=== PATIENT | male | born 1965 | race Caucasian/White ===

== ENCOUNTER 2023-07-21 11:48 | Inpatient (IN) | payer OTHER ==
[2023-07-21 12:39] VITALS: BMI 21.9
[2023-07-21] MEDS ORDERED: BENZONATATE 200 MG CAPSULE PO PRN (13:36)
[2023-07-21] MEDS ORDERED: NALOXONE HCL 0.4 MG/ML VIAL IM PRN (13:36)
[2023-07-21] MEDS ORDERED: BENZOCAINE/MENTHOL (CHLORASEPTIC ) LOZENGE MM PRN (13:36)
[2023-07-21] MEDS ORDERED: COLLOIDAL OATMEAL 1 BAR EACH TP PRN (13:36)
[2023-07-21] MEDS ORDERED: guaiFENesin 600 MG TABLET.ER (FP) PO PRN (13:36)
[2023-07-21] MEDS ORDERED: POLYETHYLENE GLYCOL (HEALTHYLAX) 3350 17 GM PACKET PO PRN (13:36)
[2023-07-21] MEDS ORDERED: LOPERAMIDE HCL 2 MG CAPSULE PO PRN (13:36)
[2023-07-21] MEDS ORDERED: MAGNESIUM HYDROX 2400MG/30ML ORAL SUSPENSION 30 ML CUP PO PRN (13:36)
[2023-07-21] MEDS ORDERED: NALOXONE HCL (KLOXXADO) 8 MG SPRAY NS PRN (13:36)
[2023-07-21] MEDS ORDERED: ACETAMINOPHEN 325 MG TABLET (FP) PO PRN (13:36)
[2023-07-21] MEDS: MAG HYDROX/AL HYDROX/SIMETH 30 ML UNIT-DOSE CUP PO PRN (15:37)
[2023-07-21] MEDS: PRENATAL VITAMINS W/ FOLIC ACID TABLET (FP) PO SCH (15:37)
[2023-07-21] MEDS ORDERED: PRENATAL VITAMINS W/ FOLIC ACID TABLET (FP) PO ONE (15:38)
[2023-07-21] MEDS ORDERED: MAG HYDROX/AL HYDROX/SIMETH 30 ML UNIT-DOSE CUP ONE (15:38)
[2023-07-21] MEDS ORDERED: cloNIDine HCL 0.1 MG TABLET PO ONE ×2 (17:52→18:15)
[2023-07-21] MEDS ORDERED: hydrOXYzine PAMOATE 25 MG CAPSULE (FP) PO ONE (17:57)
[2023-07-21] MEDS ORDERED: PATIENT'S OWN MEDICATION (NON-FORMULARY) (Ibuprofen [Ibuprofen] 800 MG Tablet) PO PRN (18:23)
[2023-07-21] MEDS: THIAMINE HCL 100 MG TABLET (FP) PO SCH (21:10)
[2023-07-21] MEDS: traZODone HCL 50 MG TABLET (FP) PO SCH (21:11)
[2023-07-21] MEDS: METHOCARBAMOL 500 MG TABLET PO SCH (21:11)
[2023-07-21] MEDS: AMOXICILLIN 500 MG CAPSULE (FP) PO SCH (21:11)
[2023-07-21] MEDS: clonazePAM 0.5 MG ODT TABLETS SL SCH (21:13)
[2023-07-21] MEDS: SUCRALFATE 1 GM TABLET (FP) PO SCH (21:31)
[2023-07-21] MEDS: hydrALAZINE HCL 25 MG TABLET (FP) PO SCH (21:31)
[2023-07-21] MEDS ORDERED: hydrALAZINE HCL 50 MG TABLET (FP) PO SCH (22:00)
[2023-07-21] MEDS ORDERED: MELATONIN 5 MG TABLETS PO SCH (22:00)
[2023-07-22] MEDS: hydrALAZINE HCL 25 MG TABLET (FP) PO SCH ×3 (06:26→21:52)
[2023-07-22] MEDS: AMOXICILLIN 500 MG CAPSULE (FP) PO SCH ×3 (06:26→21:15)
[2023-07-22] MEDS ORDERED: PATIENT'S OWN MEDICATION (NON-FORMULARY) (Valsartan/Hydrochlorothiazide [Valsartan-Hctz 80 PO SCH (10:00)
[2023-07-22] MEDS ORDERED: FUROSEMIDE 20 MG TABLET (FP) PO SCH (10:00)
[2023-07-22] MEDS: LOSARTAN POTASSIUM 50 MG TABLET PO SCH (10:33)
[2023-07-22] MEDS: LORATADINE 10 MG TABLET PO SCH (10:33)
[2023-07-22] MEDS: PRENATAL VITAMINS W/ FOLIC ACID TABLET (FP) PO SCH (10:33)
[2023-07-22] MEDS: IBUPROFEN 600 MG TABLET (FP) PO PRN ×2 (10:33→17:47)
[2023-07-22] MEDS: SERTRALINE HCL 50 MG TABLET (FP) PO SCH (10:34)
[2023-07-22] MEDS: cloNIDine HCL 0.1 MG TABLET PO SCH (10:34)
[2023-07-22] MEDS: ASPIRIN COATED 81 MG TABLET.EC PO SCH (10:34)
[2023-07-22] MEDS: METHOCARBAMOL 500 MG TABLET PO SCH ×2 (10:34→21:16)
[2023-07-22] MEDS: HYDROCHLOROTHIAZIDE 12.5 MG CAPSULE (FP) PO SCH (10:34)
[2023-07-22] MEDS: SUCRALFATE 1 GM TABLET (FP) PO SCH ×4 (10:36→21:19)
[2023-07-22] MEDS: FOLIC ACID 1 MG TABLET (FP) PO SCH (10:36)
[2023-07-22] MEDS: clonazePAM 0.5 MG ODT TABLETS SL SCH ×2 (10:36→21:15)
[2023-07-22] MEDS: FUROSEMIDE 40 MG TABLET (FP) PO SCH (10:36)
[2023-07-22] MEDS: VALSARTAN 80 MG TABLET PO SCH (10:36)
[2023-07-22 12:22] LABS: HEMOGLOBIN 13.2 GM/dL (11.7-16.9); MCH 33.4 pg (25.7-33.7); MCHC 35.7 g/dl (32.0-35.9); MEAN CELL VOLUME 93.6 fl (80-96); MEAN PLT VOLUME 7.6 fl (7.5-11.1); PLATELET COUNT 273 10^3/uL (134-434); RBC 3.96 M/mm3 (4.00-5.60); RDW 15.3 % (11.9-15.9)
[2023-07-22 12:26] LABS: POTASSIUM 3.6 mmol/L (3.5-5.1)
[2023-07-22 12:30] LABS: ALBUMIN 3.7 g/dl (3.4-5.0); BLOOD UREA NITROGEN 9.4 mg/dL (7-18); CALCIUM 8.2 mg/dL (8.5-10.1)
[2023-07-22 12:33] LABS: CREATININE 0.8 mg/dL (0.55-1.3)
[2023-07-22 12:35] LABS: BILIRUBIN,TOTAL 0.9 mg/dL (0.2-1); TOT PROT 6.8 g/dl (6.4-8.2)
[2023-07-22 12:47] LABS: SYPHILIS W/ RPR CONF NON-REACTIVE (NONREACTIVE)
[2023-07-22] MEDS: MAG HYDROX/AL HYDROX/SIMETH 30 ML UNIT-DOSE CUP PO PRN (15:47)
[2023-07-22] MEDS: THIAMINE HCL 100 MG TABLET (FP) PO SCH (21:15)
[2023-07-22] MEDS: traZODone HCL 50 MG TABLET (FP) PO SCH (21:16)
[2023-07-23] MEDS: hydrALAZINE HCL 25 MG TABLET (FP) PO SCH ×3 (06:18→21:24)
[2023-07-23] MEDS: AMOXICILLIN 500 MG CAPSULE (FP) PO SCH ×3 (06:18→21:24)
[2023-07-23] MEDS: IBUPROFEN 600 MG TABLET (FP) PO PRN ×2 (06:20→17:11)
[2023-07-23] MEDS: PRENATAL VITAMINS W/ FOLIC ACID TABLET (FP) PO SCH (09:04)
[2023-07-23] MEDS: clonazePAM 0.5 MG ODT TABLETS SL SCH ×2 (09:05→21:24)
[2023-07-23] MEDS: HYDROCHLOROTHIAZIDE 12.5 MG CAPSULE (FP) PO SCH (09:05)
[2023-07-23] MEDS: SUCRALFATE 1 GM TABLET (FP) PO SCH ×4 (09:05→23:40)
[2023-07-23] MEDS: SERTRALINE HCL 50 MG TABLET (FP) PO SCH (09:06)
[2023-07-23] MEDS: cloNIDine HCL 0.1 MG TABLET PO SCH (09:06)
[2023-07-23] MEDS: ASPIRIN COATED 81 MG TABLET.EC PO SCH (09:06)
[2023-07-23] MEDS: LOSARTAN POTASSIUM 50 MG TABLET PO SCH (09:06)
[2023-07-23] MEDS: FOLIC ACID 1 MG TABLET (FP) PO SCH (09:07)
[2023-07-23] MEDS: VALSARTAN 80 MG TABLET PO SCH (09:07)
[2023-07-23] MEDS: LORATADINE 10 MG TABLET PO SCH (09:07)
[2023-07-23] MEDS: METHOCARBAMOL 500 MG TABLET PO SCH ×2 (09:08→21:23)
[2023-07-23] MEDS: FUROSEMIDE 40 MG TABLET (FP) PO SCH (09:08)
[2023-07-23 10:18] LABS: PH,URINE 8.5 (5.0-8.0); URINE APPEARANCE CLEAR; URINE BILIRUBIN NEGATIVE (NEGATIVE); URINE COLOR YELLOW; URINE GLUCOSE (UA) NEGATIVE (NEGATIVE); URINE KETONE NEGATIVE (NEGATIVE); URINE LEUK ESTERASE NEGATIVE (NEGATIVE); URINE NITRITE NEGATIVE (NEGATIVE); URINE PROTEIN NEGATIVE (NEGATIVE)
[2023-07-23] MEDS: MAG HYDROX/AL HYDROX/SIMETH 30 ML UNIT-DOSE CUP PO PRN (13:19)
[2023-07-23] MEDS: traZODone HCL 50 MG TABLET (FP) PO SCH (21:23)
[2023-07-23] MEDS: THIAMINE HCL 100 MG TABLET (FP) PO SCH (21:25)
[2023-07-24] MEDS: hydrALAZINE HCL 25 MG TABLET (FP) PO SCH (06:41)
[2023-07-24] MEDS: AMOXICILLIN 500 MG CAPSULE (FP) PO SCH ×3 (06:42→21:15)
[2023-07-24] MEDS: hydrOXYzine PAMOATE 25 MG CAPSULE (FP) PO PRN (06:42)
[2023-07-24] MEDS: VALSARTAN 80 MG TABLET PO SCH (10:46)
[2023-07-24] MEDS: SUCRALFATE 1 GM TABLET (FP) PO SCH ×4 (10:47→21:16)
[2023-07-24] MEDS: clonazePAM 0.5 MG ODT TABLETS SL SCH ×2 (10:47→21:16)
[2023-07-24] MEDS: HYDROCHLOROTHIAZIDE 12.5 MG CAPSULE (FP) PO SCH (10:48)
[2023-07-24] MEDS: cloNIDine HCL 0.1 MG TABLET PO SCH (10:48)
[2023-07-24] MEDS: LOSARTAN POTASSIUM 50 MG TABLET PO SCH (10:49)
[2023-07-24] MEDS: LORATADINE 10 MG TABLET PO SCH (10:49)
[2023-07-24] MEDS: FOLIC ACID 1 MG TABLET (FP) PO SCH (10:49)
[2023-07-24] MEDS: ASPIRIN COATED 81 MG TABLET.EC PO SCH (10:49)
[2023-07-24] MEDS: METHOCARBAMOL 500 MG TABLET PO SCH ×2 (10:50→21:16)
[2023-07-24] MEDS: FUROSEMIDE 40 MG TABLET (FP) PO SCH (10:51)
[2023-07-24] MEDS: SERTRALINE HCL 50 MG TABLET (FP) PO SCH (10:51)
[2023-07-24] MEDS: PRENATAL VITAMINS W/ FOLIC ACID TABLET (FP) PO SCH (10:51)
[2023-07-24] MEDS: hydrALAZINE HCL 50 MG TABLET (FP) PO SCH ×2 (15:20→21:15)
[2023-07-24] MEDS: THIAMINE HCL 100 MG TABLET (FP) PO SCH (21:13)
[2023-07-24] MEDS: traZODone HCL 50 MG TABLET (FP) PO SCH (21:16)
[2023-07-24] MEDS: MAG HYDROX/AL HYDROX/SIMETH 30 ML UNIT-DOSE CUP PO PRN (21:17)
[2023-07-25] MEDS: hydrALAZINE HCL 50 MG TABLET (FP) PO SCH ×3 (06:34→21:15)
[2023-07-25] MEDS: hydrOXYzine PAMOATE 25 MG CAPSULE (FP) PO PRN (06:35)
[2023-07-25] MEDS: AMOXICILLIN 500 MG CAPSULE (FP) PO SCH ×3 (06:43→21:15)
[2023-07-25] MEDS: PRENATAL VITAMINS W/ FOLIC ACID TABLET (FP) PO SCH (10:38)
[2023-07-25] MEDS: METHOCARBAMOL 500 MG TABLET PO SCH ×2 (10:39→21:15)
[2023-07-25] MEDS: LOSARTAN POTASSIUM 50 MG TABLET PO SCH (10:39)
[2023-07-25] MEDS: SUCRALFATE 1 GM TABLET (FP) PO SCH ×4 (10:39→21:16)
[2023-07-25] MEDS: FUROSEMIDE 40 MG TABLET (FP) PO SCH (10:40)
[2023-07-25] MEDS: HYDROCHLOROTHIAZIDE 12.5 MG CAPSULE (FP) PO SCH (10:40)
[2023-07-25] MEDS: VALSARTAN 80 MG TABLET PO SCH (10:40)
[2023-07-25] MEDS: clonazePAM 0.5 MG ODT TABLETS SL SCH ×2 (10:41→21:16)
[2023-07-25] MEDS: ASPIRIN COATED 81 MG TABLET.EC PO SCH (10:41)
[2023-07-25] MEDS: SERTRALINE HCL 50 MG TABLET (FP) PO SCH (10:42)
[2023-07-25] MEDS: LORATADINE 10 MG TABLET PO SCH (10:42)
[2023-07-25] MEDS: cloNIDine HCL 0.1 MG TABLET PO SCH (10:42)
[2023-07-25] MEDS: FOLIC ACID 1 MG TABLET (FP) PO SCH (10:42)
[2023-07-25] MEDS: IBUPROFEN 600 MG TABLET (FP) PO PRN ×2 (10:43→21:16)
[2023-07-25] MEDS ORDERED: cloNIDine HCL 0.1 MG TABLET PO SCH (14:30)
[2023-07-25] MEDS: MAG HYDROX/AL HYDROX/SIMETH 30 ML UNIT-DOSE CUP PO PRN (14:42)
[2023-07-25] MEDS ORDERED: cloNIDine HCL 0.1 MG TABLET PO PRN (14:45)
[2023-07-25] MEDS: PANTOPRAZOLE 20 MG TABLET PO SCH (15:15)
[2023-07-25] MEDS: THIAMINE HCL 100 MG TABLET (FP) PO SCH (21:15)
[2023-07-25] MEDS: traZODone HCL 50 MG TABLET (FP) PO SCH (21:15)
[2023-07-26] MEDS: hydrALAZINE HCL 50 MG TABLET (FP) PO SCH ×3 (06:43→21:12)
[2023-07-26] MEDS: IBUPROFEN 600 MG TABLET (FP) PO PRN ×2 (06:44→13:50)
[2023-07-26] MEDS: AMOXICILLIN 500 MG CAPSULE (FP) PO SCH ×3 (07:01→21:12)
[2023-07-26] MEDS: clonazePAM 0.5 MG ODT TABLETS SL SCH ×2 (10:08→21:13)
[2023-07-26] MEDS: PRENATAL VITAMINS W/ FOLIC ACID TABLET (FP) PO SCH (10:08)
[2023-07-26] MEDS: SERTRALINE HCL 50 MG TABLET (FP) PO SCH (10:08)
[2023-07-26] MEDS: HYDROCHLOROTHIAZIDE 12.5 MG CAPSULE (FP) PO SCH (10:08)
[2023-07-26] MEDS: ASPIRIN COATED 81 MG TABLET.EC PO SCH (10:08)
[2023-07-26] MEDS: FOLIC ACID 1 MG TABLET (FP) PO SCH (10:08)
[2023-07-26] MEDS: LOSARTAN POTASSIUM 50 MG TABLET PO SCH (10:08)
[2023-07-26] MEDS: FUROSEMIDE 40 MG TABLET (FP) PO SCH (10:09)
[2023-07-26] MEDS: PANTOPRAZOLE 20 MG TABLET PO SCH (10:09)
[2023-07-26] MEDS: VALSARTAN 80 MG TABLET PO SCH (10:09)
[2023-07-26] MEDS: SUCRALFATE 1 GM TABLET (FP) PO SCH ×4 (10:09→21:12)
[2023-07-26] MEDS: LORATADINE 10 MG TABLET PO SCH (10:09)
[2023-07-26] MEDS: METHOCARBAMOL 500 MG TABLET PO SCH ×2 (10:10→21:12)
[2023-07-26] MEDS ORDERED: hydrOXYzine PAMOATE 25 MG CAPSULE (FP) PO PRN (17:00)
[2023-07-26] MEDS: traZODone HCL 50 MG TABLET (FP) PO SCH (21:12)
[2023-07-26] MEDS: THIAMINE HCL 100 MG TABLET (FP) PO SCH (21:12)
[2023-07-26] MEDS: IBUPROFEN 400 MG TABLET (FP) PO PRN (21:12)
[2023-07-26] MEDS: MAG HYDROX/AL HYDROX/SIMETH 30 ML UNIT-DOSE CUP PO PRN (21:14)
[2023-07-27] MEDS: hydrALAZINE HCL 50 MG TABLET (FP) PO SCH ×3 (06:27→21:12)
[2023-07-27] MEDS: AMOXICILLIN 500 MG CAPSULE (FP) PO SCH ×3 (06:27→21:12)
[2023-07-27] MEDS: IBUPROFEN 600 MG TABLET (FP) PO PRN ×4 (06:28→18:59)
[2023-07-27] MEDS: METHOCARBAMOL 500 MG TABLET PO SCH ×2 (10:20→21:12)
[2023-07-27] MEDS: clonazePAM 0.5 MG ODT TABLETS SL SCH ×2 (10:20→21:13)
[2023-07-27] MEDS: HYDROCHLOROTHIAZIDE 12.5 MG CAPSULE (FP) PO SCH (10:20)
[2023-07-27] MEDS: FOLIC ACID 1 MG TABLET (FP) PO SCH (10:20)
[2023-07-27] MEDS: SERTRALINE HCL 50 MG TABLET (FP) PO SCH (10:20)
[2023-07-27] MEDS: FUROSEMIDE 40 MG TABLET (FP) PO SCH (10:20)
[2023-07-27] MEDS: PRENATAL VITAMINS W/ FOLIC ACID TABLET (FP) PO SCH (10:21)
[2023-07-27] MEDS: LORATADINE 10 MG TABLET PO SCH (10:21)
[2023-07-27] MEDS: PANTOPRAZOLE 20 MG TABLET PO SCH (10:21)
[2023-07-27] MEDS: SUCRALFATE 1 GM TABLET (FP) PO SCH ×4 (10:21→21:12)
[2023-07-27] MEDS: VALSARTAN 80 MG TABLET PO SCH (10:21)
[2023-07-27] MEDS: ASPIRIN COATED 81 MG TABLET.EC PO SCH (10:21)
[2023-07-27] MEDS: LOSARTAN POTASSIUM 50 MG TABLET PO SCH (10:21)
[2023-07-27] MEDS ORDERED: ACETAMINOPHEN 325 MG TABLET (FP) PO PRN (11:59)
[2023-07-27] MEDS: GABAPENTIN 300 MG CAPSULE PO SCH ×2 (13:35→21:12)
[2023-07-27] MEDS: THIAMINE HCL 100 MG TABLET (FP) PO SCH (21:12)
[2023-07-27] MEDS: traZODone HCL 50 MG TABLET (FP) PO SCH (21:12)
[2023-07-28] MEDS: AMOXICILLIN 500 MG CAPSULE (FP) PO SCH ×2 (06:28→13:41)
[2023-07-28] MEDS: GABAPENTIN 300 MG CAPSULE PO SCH ×3 (06:28→21:17)
[2023-07-28] MEDS: hydrALAZINE HCL 50 MG TABLET (FP) PO SCH ×3 (06:28→21:18)
[2023-07-28] MEDS: IBUPROFEN 600 MG TABLET (FP) PO PRN ×3 (06:30→14:32)
[2023-07-28] MEDS: PRENATAL VITAMINS W/ FOLIC ACID TABLET (FP) PO SCH (10:03)
[2023-07-28] MEDS: clonazePAM 0.5 MG ODT TABLETS SL SCH ×2 (10:03→21:17)
[2023-07-28] MEDS: LORATADINE 10 MG TABLET PO SCH (10:04)
[2023-07-28] MEDS: SUCRALFATE 1 GM TABLET (FP) PO SCH ×4 (10:04→21:17)
[2023-07-28] MEDS: HYDROCHLOROTHIAZIDE 12.5 MG CAPSULE (FP) PO SCH (10:04)
[2023-07-28] MEDS: FUROSEMIDE 40 MG TABLET (FP) PO SCH (10:04)
[2023-07-28] MEDS: PANTOPRAZOLE 20 MG TABLET PO SCH (10:04)
[2023-07-28] MEDS: FOLIC ACID 1 MG TABLET (FP) PO SCH (10:04)
[2023-07-28] MEDS: ASPIRIN COATED 81 MG TABLET.EC PO SCH (10:04)
[2023-07-28] MEDS: LOSARTAN POTASSIUM 50 MG TABLET PO SCH (10:04)
[2023-07-28] MEDS: METHOCARBAMOL 500 MG TABLET PO SCH ×2 (10:05→21:17)
[2023-07-28] MEDS: SERTRALINE HCL 50 MG TABLET (FP) PO SCH (10:05)
[2023-07-28] MEDS: VALSARTAN 80 MG TABLET PO SCH (10:05)
[2023-07-28] MEDS: traZODone HCL 50 MG TABLET (FP) PO SCH (21:16)
[2023-07-28] MEDS: THIAMINE HCL 100 MG TABLET (FP) PO SCH (21:16)
[2023-07-29] MEDS: hydrALAZINE HCL 50 MG TABLET (FP) PO SCH ×3 (06:27→21:32)
[2023-07-29] MEDS: IBUPROFEN 600 MG TABLET (FP) PO PRN ×2 (06:27→19:09)
[2023-07-29] MEDS: GABAPENTIN 300 MG CAPSULE PO SCH ×3 (06:27→21:31)
[2023-07-29] MEDS: VALSARTAN 80 MG TABLET PO SCH (10:15)
[2023-07-29] MEDS: PRENATAL VITAMINS W/ FOLIC ACID TABLET (FP) PO SCH (10:15)
[2023-07-29] MEDS: SUCRALFATE 1 GM TABLET (FP) PO SCH ×4 (10:15→21:32)
[2023-07-29] MEDS: LOSARTAN POTASSIUM 50 MG TABLET PO SCH (10:15)
[2023-07-29] MEDS: ASPIRIN COATED 81 MG TABLET.EC PO SCH (10:15)
[2023-07-29] MEDS: SERTRALINE HCL 50 MG TABLET (FP) PO SCH (10:15)
[2023-07-29] MEDS: HYDROCHLOROTHIAZIDE 12.5 MG CAPSULE (FP) PO SCH (10:16)
[2023-07-29] MEDS: LORATADINE 10 MG TABLET PO SCH (10:16)
[2023-07-29] MEDS: FOLIC ACID 1 MG TABLET (FP) PO SCH (10:16)
[2023-07-29] MEDS: FUROSEMIDE 40 MG TABLET (FP) PO SCH (10:16)
[2023-07-29] MEDS: METHOCARBAMOL 500 MG TABLET PO SCH ×2 (10:17→21:31)
[2023-07-29] MEDS: PANTOPRAZOLE 20 MG TABLET PO SCH (10:17)
[2023-07-29] MEDS: clonazePAM 0.5 MG ODT TABLETS SL SCH ×2 (10:18→21:29)
[2023-07-29] MEDS: IBUPROFEN 400 MG TABLET (FP) PO PRN (13:47)
[2023-07-29] MEDS: traZODone HCL 50 MG TABLET (FP) PO SCH (21:29)
[2023-07-29] MEDS: THIAMINE HCL 100 MG TABLET (FP) PO SCH (21:33)
[2023-07-30] MEDS: GABAPENTIN 300 MG CAPSULE PO SCH ×3 (05:53→22:09)
[2023-07-30] MEDS: hydrALAZINE HCL 50 MG TABLET (FP) PO SCH ×3 (05:54→22:07)
[2023-07-30] MEDS: IBUPROFEN 600 MG TABLET (FP) PO PRN ×2 (05:54→17:18)
[2023-07-30] MEDS: LORATADINE 10 MG TABLET PO SCH (09:52)
[2023-07-30] MEDS: HYDROCHLOROTHIAZIDE 12.5 MG CAPSULE (FP) PO SCH (09:52)
[2023-07-30] MEDS: ASPIRIN COATED 81 MG TABLET.EC PO SCH (09:52)
[2023-07-30] MEDS: clonazePAM 0.5 MG ODT TABLETS SL SCH ×2 (09:53→22:08)
[2023-07-30] MEDS: PANTOPRAZOLE 20 MG TABLET PO SCH (09:53)
[2023-07-30] MEDS: PRENATAL VITAMINS W/ FOLIC ACID TABLET (FP) PO SCH (09:53)
[2023-07-30] MEDS: LOSARTAN POTASSIUM 50 MG TABLET PO SCH (09:53)
[2023-07-30] MEDS: SUCRALFATE 1 GM TABLET (FP) PO SCH ×4 (09:54→22:07)
[2023-07-30] MEDS: SERTRALINE HCL 50 MG TABLET (FP) PO SCH (09:55)
[2023-07-30] MEDS: FOLIC ACID 1 MG TABLET (FP) PO SCH (09:55)
[2023-07-30] MEDS: VALSARTAN 80 MG TABLET PO SCH (09:57)
[2023-07-30] MEDS: FUROSEMIDE 40 MG TABLET (FP) PO SCH (09:59)
[2023-07-30] MEDS: METHOCARBAMOL 500 MG TABLET PO SCH ×2 (09:59→22:09)
[2023-07-30 15:35] VITALS: RESP 18
[2023-07-30] MEDS: traZODone HCL 50 MG TABLET (FP) PO SCH (22:08)
[2023-07-30] MEDS: THIAMINE HCL 100 MG TABLET (FP) PO SCH (22:09)
[2023-07-31] MEDS: GABAPENTIN 300 MG CAPSULE PO SCH ×2 (06:52→13:07)
[2023-07-31] MEDS: hydrALAZINE HCL 50 MG TABLET (FP) PO SCH ×2 (06:52→13:07)
[2023-07-31] MEDS: IBUPROFEN 600 MG TABLET (FP) PO PRN (06:55)
[2023-07-31 07:01] VITALS: TEMP 97.7
[2023-07-31] MEDS ORDERED: BENZOCAINE 20 % GEL TUBE MM PRN (08:37)
[2023-07-31] MEDS ORDERED: AMMONIUM LACTATE 12% LOTION 225 GM BOTTLE TP PRN (08:39)
[2023-07-31] MEDS: PRENATAL VITAMINS W/ FOLIC ACID TABLET (FP) PO SCH (10:17)
[2023-07-31] MEDS: SUCRALFATE 1 GM TABLET (FP) PO SCH ×2 (10:17→13:07)
[2023-07-31] MEDS: SERTRALINE HCL 50 MG TABLET (FP) PO SCH (10:18)
[2023-07-31] MEDS: METHOCARBAMOL 500 MG TABLET PO SCH (10:18)
[2023-07-31] MEDS: LORATADINE 10 MG TABLET PO SCH (10:18)
[2023-07-31] MEDS: FUROSEMIDE 40 MG TABLET (FP) PO SCH (10:18)
[2023-07-31] MEDS: LOSARTAN POTASSIUM 50 MG TABLET PO SCH (10:18)
[2023-07-31] MEDS: FOLIC ACID 1 MG TABLET (FP) PO SCH (10:18)
[2023-07-31] MEDS: ASPIRIN COATED 81 MG TABLET.EC PO SCH (10:18)
[2023-07-31] MEDS: clonazePAM 0.5 MG ODT TABLETS SL SCH (10:18)
[2023-07-31] MEDS: HYDROCHLOROTHIAZIDE 12.5 MG CAPSULE (FP) PO SCH (10:18)
[2023-07-31] MEDS: PANTOPRAZOLE 20 MG TABLET PO SCH (10:18)
[2023-07-31] MEDS: VALSARTAN 80 MG TABLET PO SCH (10:19)
[2023-07-31 13:51] VITALS: BP 148/98; PULSE 85
[2023-07-31] MEDS ORDERED: AMOX TR/POT CLAV 500MG/125MG TABLETS (FP) PO SCH (17:30)
== END 2023-07-31 15:26 | disposition home or self-care (01) | DRG 772 ==
LOC: YASAS 11:48 → Y6N 14:46 → Y3W 15:01
PROVIDERS: ADMIT Allergy & Immunology; ATTEND Psychiatry & Neurology Pain Medicine
PROC: HZ42ZZZ Group Counseling for Substance Abuse Treatment, Cognitive-Behavioral (ICD-10-PCS; principal; 2023-07-21)
DX: F10.20 Alcohol dependence, uncomplicated (principal); F12.20 Cannabis dependence, uncomplicated; F13.20 Sedative, hypnotic or anxiolytic dependence, uncomplicated; F32.A Depression, unspecified; F41.9 Anxiety disorder, unspecified; I10 Essential (primary) hypertension; K21.9 Gastro-esophageal reflux disease without esophagitis; K08.9 Disorder of teeth and supporting structures, unspecified; R26.89 Other abnormalities of gait and mobility; I69.854 Hemiplegia and hemiparesis following other cerebrovascular disease affecting left non-dominant side; Z99.89 Dependence on other enabling machines and devices; Z87.891 Personal history of nicotine dependence
CPT/HCPCS: 36415; 80053; 80307; 81003; 85027; 86780; 86803; 87635; 93005; 93010

== ENCOUNTER 2023-07-24 13:01 | Emergency (ER) | payer OTHER ==
[2023-07-24 13:21] VITALS: BP 146/81; PULSE 69; RESP 17; TEMP 98.1; BMI 21.4
[2023-07-24] MEDS ORDERED: METOCLOPRAMIDE HCL INJECTION 10 MG/2 ML VIAL IVPB ONE (14:14)
[2023-07-24] MEDS ORDERED: METOCLOPRAMIDE HCL INJECTION 10 MG/2 ML VIAL ONE (14:43)
[2023-07-24] MEDS ORDERED: SODIUM CHLORIDE 0.9% 500 ML INFUS.BAG IV ONE (14:46)
[2023-07-24] MEDS ORDERED: ACETAMINOPHEN 1000 MG/100 ML BAG IVPB ONE (14:49)
[2023-07-24 14:59] LABS: BASO % 1.4 % (0-2.0); EOS % 1.6 % (0-4.5); HEMATOCRIT 38.3 % (35.4-49); HEMOGLOBIN 13.7 GM/dL (11.7-16.9); LYMPH % 23.6 % (8-40); MCH 33.6 pg (25.7-33.7); MCHC 35.6 g/dl (32.0-35.9); MEAN CELL VOLUME 94.4 fl (80-96); MEAN PLT VOLUME 7.2 fl (7.5-11.1); MONO % 6.4 % (3.8-10.2); PLATELET COUNT 229 10^3/uL (134-434); RBC 4.06 M/mm3 (4.00-5.60); RDW 15.2 % (11.9-15.9); WHITE BLOOD COUNT 4.9 K/mm3 (4.0-10.0)
[2023-07-24 15:05] LABS: INR 1.09 (0.83-1.09); PROTHROMBIN TIME (PATIENT) 12.6 SEC (9.7-13.0)
[2023-07-24 15:08] LABS: ACTIVATED PTT 29.5 SECONDS (25.2-36.5)
[2023-07-24 15:29] LABS: POTASSIUM 3.6 mmol/L (3.5-5.1)
[2023-07-24 15:31] LABS: ALBUMIN 3.7 g/dl (3.4-5.0); CALCIUM 9.2 mg/dL (8.5-10.1); MAGNESIUM 2.1 mg/dL (1.8-2.4)
[2023-07-24 15:34] LABS: CREATININE 0.8 mg/dL (0.55-1.3)
[2023-07-24 15:40] LABS: BILIRUBIN,TOTAL 0.7 mg/dL (0.2-1)
[2023-07-24] MEDS ORDERED: ACETAMINOPHEN INJECTION 100 ML IVPB ONE (16:07)
[2023-07-24] MEDS ORDERED: KETOROLAC TROMETHAMINE 15 MG/ML VIAL IVPUSH ONE (16:55)
[2023-07-24] MEDS ORDERED: KETOROLAC TROMETHAMINE 15 MG/ML VIAL ONE (17:20)
[2023-07-24 18:49] LABS: URINE APPEARANCE CLEAR; URINE BILIRUBIN NEGATIVE (NEGATIVE); URINE COLOR YELLOW; URINE GLUCOSE (UA) NEGATIVE (NEGATIVE); URINE KETONE NEGATIVE (NEGATIVE); URINE LEUK ESTERASE NEGATIVE (NEGATIVE); URINE NITRITE NEGATIVE (NEGATIVE); URINE PROTEIN NEGATIVE (NEGATIVE); URINE UROBILINOGEN 0.2 mg/dL (0.2-1.0)
== END 2023-07-24 19:14 | disposition home or self-care (01) ==
LOC: JER 13:01
PROC: 3E033NZ Introduction of Analgesics, Hypnotics, Sedatives into Peripheral Vein, Percutaneous Approach (ICD-10-PCS; principal; 2023-07-24)
PROC: 3E0333Z Introduction of Anti-inflammatory into Peripheral Vein, Percutaneous Approach (ICD-10-PCS; 2023-07-24)
PROC: 3E033GC Introduction of Other Therapeutic Substance into Peripheral Vein, Percutaneous Approach (ICD-10-PCS; 2023-07-24)
DX: S59.902A Unspecified injury of left elbow, initial encounter (principal); R22.32 Localized swelling, mass and lump, left upper limb; S80.211A Abrasion, right knee, initial encounter; S29.9XXA Unspecified injury of thorax, initial encounter; G81.92 Hemiplegia, unspecified affecting left dominant side; R53.1 Weakness; W19.XXXA Unspecified fall, initial encounter; Z20.822 Contact with and (suspected) exposure to COVID-19
CPT/HCPCS: 0241U-QW; 36415; 70450-TC; 71046-TC-FY; 72125-TC; 72131-TC; 73070-TC-LT-FY; 73562-TC-RT-FY; 80053; 81003; 83735; 84484; 85025; 85610; 85730; 87086; 93005; 93010; 99285-25

== ENCOUNTER 2023-08-04 08:06 | Inpatient (IN) | payer OTHER ==
[2023-08-04 08:40] LABS: BASO % 1.5 % (0-2.0); EOS % 2.5 % (0-4.5); HEMATOCRIT 40.1 % (35.4-49); HEMOGLOBIN 13.8 GM/dL (11.7-16.9); LYMPH % 30.6 % (8-40); MCH 32.8 pg (25.7-33.7); MCHC 34.3 g/dl (32.0-35.9); MEAN CELL VOLUME 95.7 fl (80-96); MEAN PLT VOLUME 7.5 fl (7.5-11.1); MONO % 7.1 % (3.8-10.2); NEUT % 58.3 % (42.8-82.8); PLATELET COUNT 226 10^3/uL (134-434); RBC 4.19 M/mm3 (4.00-5.60); RDW 14.8 % (11.9-15.9); WHITE BLOOD COUNT 3.6 K/mm3 (4.0-10.0)
[2023-08-04 08:45] LABS: INR 1.03 (0.83-1.09)
[2023-08-04 08:48] LABS: ACTIVATED PTT 29.5 SECONDS (25.2-36.5)
[2023-08-04] MEDS ORDERED: ACETAMINOPHEN 1000 MG/100 ML BAG IVPB ONE (08:58)
[2023-08-04] MEDS ORDERED: METOCLOPRAMIDE HCL INJECTION 10 MG/2 ML VIAL IVPB ONE (08:58)
[2023-08-04] MEDS ORDERED: ACETAMINOPHEN INJECTION 100 ML IVPB ONE (09:01)
[2023-08-04] MEDS ORDERED: METOCLOPRAMIDE HCL INJECTION 10 MG/2 ML VIAL ONE (09:01)
[2023-08-04 09:02] LABS: POTASSIUM 3.9 mmol/L (3.5-5.1)
[2023-08-04 09:04] LABS: ALBUMIN 4.1 g/dl (3.4-5.0)
[2023-08-04 09:05] LABS: BLOOD UREA NITROGEN 6.6 mg/dL (7-18)
[2023-08-04 09:07] LABS: CREATININE 0.8 mg/dL (0.55-1.3)
[2023-08-04 09:09] LABS: TOT PROT 7.2 g/dl (6.4-8.2)
[2023-08-04 09:10] LABS: BILIRUBIN,TOTAL 0.5 mg/dL (0.2-1)
[2023-08-04] MEDS ORDERED: ASPIRIN 325 MG TABLET PO ONE (09:38)
[2023-08-04] MEDS ORDERED: ASPIRIN 325 MG TABLET ONE (10:04)
[2023-08-04] MEDS ORDERED: KETOROLAC TROMETHAMINE 15 MG/ML VIAL IVPUSH ONE (10:19)
[2023-08-04] MEDS ORDERED: KETOROLAC TROMETHAMINE 15 MG/ML VIAL ONE (10:43)
[2023-08-04 14:07] LABS: PH,URINE 7.5 (5.0-8.0); URINE APPEARANCE CLEAR; URINE BILIRUBIN NEGATIVE (NEGATIVE); URINE COLOR YELLOW; URINE GLUCOSE (UA) NEGATIVE (NEGATIVE); URINE KETONE NEGATIVE (NEGATIVE); URINE LEUK ESTERASE NEGATIVE (NEGATIVE); URINE NITRITE NEGATIVE (NEGATIVE); URINE PROTEIN NEGATIVE (NEGATIVE)
[2023-08-04] MEDS ORDERED: ASPIRIN 325 MG ENTERIC COATED TABLET (FP) PO ONE (14:14)
[2023-08-04] MEDS ORDERED: AMPICILLIN NA/SULBACTAM NA 3 GM VIAL ONE ×2 (15:39→21:49)
[2023-08-04] MEDS: AMPICILLIN NA/SULBACTAM NA 3 GM in SODIUM CHLORIDE 100 ML IVPB SCH ×2 (15:52→21:57)
[2023-08-04] MEDS ORDERED: LOSARTAN POTASSIUM 50 MG TABLET ONE (20:14)
[2023-08-04] MEDS: LOSARTAN POTASSIUM 50 MG TABLET PO SCH (20:21)
[2023-08-04] MEDS ORDERED: ATORVASTATIN CA 40 MG TABLET (FP) ONE (21:49)
[2023-08-04] MEDS: ATORVASTATIN CA 40 MG TABLET (FP) PO SCH (21:57)
[2023-08-04] MEDS ORDERED: ATORVASTATIN CA 80 MG TABLET (FP) PO SCH (22:00)
[2023-08-04] MEDS: ACETAMINOPHEN 1000 MG/100 ML BAG IVPB PRN (23:24)
[2023-08-04] MEDS: MAG HYDROX/ALH/SMC/DPHA/LIDO 240 ML MOUTHWASH MM SCH (23:25)
[2023-08-05] MEDS: AMPICILLIN NA/SULBACTAM NA 3 GM in SODIUM CHLORIDE 100 ML IVPB SCH ×4 (02:17→21:30)
[2023-08-05] MEDS: MAG HYDROX/ALH/SMC/DPHA/LIDO 240 ML MOUTHWASH MM SCH ×5 (05:10→23:10)
[2023-08-05 07:52] LABS: BASO % 1.8 % (0-2.0); EOS % 2.5 % (0-4.5); HEMOGLOBIN 12.1 GM/dL (11.7-16.9); LYMPH % 33.7 % (8-40); MCH 32.6 pg (25.7-33.7); MCHC 33.7 g/dl (32.0-35.9); MEAN CELL VOLUME 96.7 fl (80-96); MEAN PLT VOLUME 7.6 fl (7.5-11.1); MONO % 7.8 % (3.8-10.2); NEUT % 54.2 % (42.8-82.8); PLATELET COUNT 214 10^3/uL (134-434); RBC 3.72 M/mm3 (4.00-5.60); RDW 14.9 % (11.9-15.9); WHITE BLOOD COUNT 4.2 K/mm3 (4.0-10.0)
[2023-08-05 08:07] LABS: POTASSIUM 4.1 mmol/L (3.5-5.1)
[2023-08-05 08:09] LABS: CALCIUM 8.1 mg/dL (8.5-10.1)
[2023-08-05 08:10] LABS: BLOOD UREA NITROGEN 5.3 mg/dL (7-18); MAGNESIUM 1.9 mg/dL (1.8-2.4)
[2023-08-05 08:13] LABS: CREATININE 0.6 mg/dL (0.55-1.3); PHOSPHOROUS 3.4 mg/dL (2.5-4.9)
[2023-08-05 08:14] LABS: BILIRUBIN,TOTAL 0.4 mg/dL (0.2-1); TOT PROT 5.4 g/dl (6.4-8.2)
[2023-08-05 08:42] LABS: ALBUMIN 3.1 g/dl (3.4-5.0)
[2023-08-05] MEDS: LOSARTAN POTASSIUM 50 MG TABLET PO SCH (09:44)
[2023-08-05] MEDS: ENOXAPARIN NA (PORCINE) 40 MG/0.4 ML DISP.SYRIN SQ SCH (09:44)
[2023-08-05] MEDS ORDERED: ASPIRIN 81 MG CHEWABLE TABLETS PO SCH (10:00)
[2023-08-05] MEDS ORDERED: IBUPROFEN 800 MG/8 ML IJ IVPB SCH (13:00)
[2023-08-05] MEDS ORDERED: cloNIDine HCL 0.1 MG TABLET PO SCH (13:45)
[2023-08-05] MEDS: hydrALAZINE HCL 50 MG TABLET (FP) PO SCH ×3 (14:58→21:36)
[2023-08-05] MEDS ORDERED: LABETALOL HCL 20 MG/4 ML VIAL IVPUSH ONE (16:15)
[2023-08-05] MEDS: busPIRone HCL 10 MG TABLET (FP) PO SCH (21:25)
[2023-08-05] MEDS: PRAMIPEXOLE DIHYDROCHLORIDE 0.25 MG TABLET PO SCH (21:27)
[2023-08-05] MEDS: DIVALPROEX NA *ER* EXTEND REL 500 MG TABLET.SA (FP) PO SCH (21:27)
[2023-08-05] MEDS: ATORVASTATIN CA 40 MG TABLET (FP) PO SCH (21:36)
[2023-08-06] MEDS: AMPICILLIN NA/SULBACTAM NA 3 GM in SODIUM CHLORIDE 100 ML IVPB SCH ×4 (02:07→21:35)
[2023-08-06] MEDS: MAG HYDROX/ALH/SMC/DPHA/LIDO 240 ML MOUTHWASH MM SCH ×3 (05:57→17:10)
[2023-08-06] MEDS: hydrALAZINE HCL 50 MG TABLET (FP) PO SCH ×3 (06:34→21:35)
[2023-08-06] MEDS: PRAMIPEXOLE DIHYDROCHLORIDE 0.25 MG TABLET PO SCH ×3 (06:34→21:35)
[2023-08-06] MEDS ORDERED: hydrALAZINE HCL 20 MG/ML VIAL IVPB ONE (08:00)
[2023-08-06] MEDS: LOSARTAN POTASSIUM 50 MG TABLET PO SCH (09:01)
[2023-08-06] MEDS: ENOXAPARIN NA (PORCINE) 40 MG/0.4 ML DISP.SYRIN SQ SCH (09:01)
[2023-08-06] MEDS: ASPIRIN COATED 81 MG TABLET.EC PO SCH (09:20)
[2023-08-06] MEDS: busPIRone HCL 10 MG TABLET (FP) PO SCH ×2 (09:20→21:34)
[2023-08-06] MEDS: DIVALPROEX NA *ER* EXTEND REL 500 MG TABLET.SA (FP) PO SCH ×2 (09:21→21:35)
[2023-08-06] MEDS: FOLIC ACID 1 MG TABLET (FP) PO SCH (09:21)
[2023-08-06] MEDS: FUROSEMIDE 20 MG TABLET (FP) PO SCH (09:21)
[2023-08-06] MEDS ORDERED: amLODIPine BESYLATE 5 MG TABLET (FP) PO SCH (10:00)
[2023-08-06] MEDS: ONDANSETRON 4 MG/2 ML VIAL IVPUSH PRN ×2 (10:42→17:10)
[2023-08-06] MEDS ORDERED: amLODIPine BESYLATE 5 MG TABLET (FP) PO ONE (11:00)
[2023-08-06 11:26] LABS: BASO % 1.4 % (0-2.0); EOS % 2.8 % (0-4.5); HEMATOCRIT 38.3 % (35.4-49); HEMOGLOBIN 12.5 GM/dL (11.7-16.9); LYMPH % 25.5 % (8-40); MCH 31.7 pg (25.7-33.7); MCHC 32.7 g/dl (32.0-35.9); MEAN CELL VOLUME 97.1 fl (80-96); MEAN PLT VOLUME 7.6 fl (7.5-11.1); MONO % 7.2 % (3.8-10.2); NEUT % 63.1 % (42.8-82.8); PLATELET COUNT 233 10^3/uL (134-434); RBC 3.95 M/mm3 (4.00-5.60); RDW 14.7 % (11.9-15.9); WHITE BLOOD COUNT 4.9 K/mm3 (4.0-10.0)
[2023-08-06 11:55] LABS: CALCIUM 8.6 mg/dL (8.5-10.1)
[2023-08-06 11:56] LABS: ALBUMIN 3.3 g/dl (3.4-5.0); BLOOD UREA NITROGEN 5.9 mg/dL (7-18); MAGNESIUM 2.1 mg/dL (1.8-2.4)
[2023-08-06 11:59] LABS: CREATININE 0.6 mg/dL (0.55-1.3); PHOSPHOROUS 3.5 mg/dL (2.5-4.9)
[2023-08-06 12:00] LABS: BILIRUBIN,TOTAL 0.4 mg/dL (0.2-1); TOT PROT 5.9 g/dl (6.4-8.2)
[2023-08-06] MEDS: DOXYCYCLINE INJECTION 100 MG in DEXTROSE 5%-WATER 100 ML IVPB SCH ×2 (13:11→21:35)
[2023-08-06] MEDS: ACETAMINOPHEN 1000 MG/100 ML BAG IVPB PRN (14:53)
[2023-08-06] MEDS ORDERED: LABETALOL HCL 20 MG/4 ML VIAL IVPUSH PRN (17:29)
[2023-08-06] MEDS: ATORVASTATIN CA 40 MG TABLET (FP) PO SCH (21:35)
[2023-08-06] MEDS: THIAMINE HCL 100 MG TABLET (FP) PO SCH (22:09)
[2023-08-07] MEDS: MAG HYDROX/ALH/SMC/DPHA/LIDO 240 ML MOUTHWASH MM SCH ×5 (00:03→23:48)
[2023-08-07] MEDS: AMPICILLIN NA/SULBACTAM NA 3 GM in SODIUM CHLORIDE 100 ML IVPB SCH ×4 (02:12→21:23)
[2023-08-07] MEDS: PRAMIPEXOLE DIHYDROCHLORIDE 0.25 MG TABLET PO SCH ×3 (06:05→21:21)
[2023-08-07] MEDS: hydrALAZINE HCL 50 MG TABLET (FP) PO SCH ×3 (06:05→21:21)
[2023-08-07] MEDS: ONDANSETRON 4 MG/2 ML VIAL IVPUSH PRN (08:10)
[2023-08-07] MEDS: ACETAMINOPHEN 1000 MG/100 ML BAG IVPB PRN (08:11)
[2023-08-07 08:59] LABS: POTASSIUM 3.6 mmol/L (3.5-5.1)
[2023-08-07 09:08] LABS: BASO % 1.2 % (0-2.0); EOS % 2.5 % (0-4.5); HEMATOCRIT 38.2 % (35.4-49); HEMOGLOBIN 13.1 GM/dL (11.7-16.9); LYMPH % 25.8 % (8-40); MCH 32.7 pg (25.7-33.7); MCHC 34.3 g/dl (32.0-35.9); MEAN CELL VOLUME 95.3 fl (80-96); MEAN PLT VOLUME 7.7 fl (7.5-11.1); MONO % 8.5 % (3.8-10.2); PLATELET COUNT 234 10^3/uL (134-434); RBC 4.01 M/mm3 (4.00-5.60); RDW 14.8 % (11.9-15.9); WHITE BLOOD COUNT 4.9 K/mm3 (4.0-10.0)
[2023-08-07 09:12] LABS: ALBUMIN 3.3 g/dl (3.4-5.0); BLOOD UREA NITROGEN 5.8 mg/dL (7-18)
[2023-08-07 09:15] LABS: CREATININE 0.7 mg/dL (0.55-1.3)
[2023-08-07 09:16] LABS: BILIRUBIN,TOTAL 0.7 mg/dL (0.2-1)
[2023-08-07] MEDS: FUROSEMIDE 20 MG TABLET (FP) PO SCH (09:17)
[2023-08-07] MEDS: LOSARTAN POTASSIUM 50 MG TABLET PO SCH (09:18)
[2023-08-07] MEDS: FOLIC ACID 1 MG TABLET (FP) PO SCH (09:18)
[2023-08-07] MEDS: ASPIRIN COATED 81 MG TABLET.EC PO SCH (09:18)
[2023-08-07] MEDS: busPIRone HCL 10 MG TABLET (FP) PO SCH ×2 (09:18→21:21)
[2023-08-07] MEDS: ENOXAPARIN NA (PORCINE) 40 MG/0.4 ML DISP.SYRIN SQ SCH (09:19)
[2023-08-07] MEDS: amLODIPine BESYLATE 5 MG TABLET (FP) PO SCH (09:38)
[2023-08-07] MEDS: DIVALPROEX NA *ER* EXTEND REL 500 MG TABLET.SA (FP) PO SCH ×2 (09:38→21:21)
[2023-08-07] MEDS: DOXYCYCLINE INJECTION 100 MG in DEXTROSE 5%-WATER 100 ML IVPB SCH ×2 (10:41→21:26)
[2023-08-07] MEDS ORDERED: MAG HYDROX/AL HYDROX/SIMETH 30 ML UNIT-DOSE CUP PO ONE ×3 (14:15→21:45)
[2023-08-07] MEDS ORDERED: hydrOXYzine PAMOATE 25 MG CAPSULE (FP) PO ONE (18:12)
[2023-08-07] MEDS ORDERED: MELATONIN 5 MG TABLETS PO ONE (19:01)
[2023-08-07] MEDS: THIAMINE HCL 100 MG TABLET (FP) PO SCH (21:20)
[2023-08-07] MEDS: ATORVASTATIN CA 40 MG TABLET (FP) PO SCH (21:21)
[2023-08-08] MEDS: AMPICILLIN NA/SULBACTAM NA 3 GM in SODIUM CHLORIDE 100 ML IVPB SCH ×4 (03:55→21:19)
[2023-08-08] MEDS: PRAMIPEXOLE DIHYDROCHLORIDE 0.25 MG TABLET PO SCH ×3 (05:37→22:21)
[2023-08-08] MEDS: hydrALAZINE HCL 50 MG TABLET (FP) PO SCH ×3 (05:37→22:21)
[2023-08-08] MEDS: MAG HYDROX/ALH/SMC/DPHA/LIDO 240 ML MOUTHWASH MM SCH ×4 (05:38→23:15)
[2023-08-08 08:37] LABS: BASO % 1.4 % (0-2.0); EOS % 1.6 % (0-4.5); HEMATOCRIT 42.2 % (35.4-49); LYMPH % 28.1 % (8-40); MCH 32.1 pg (25.7-33.7); MCHC 33.1 g/dl (32.0-35.9); MEAN PLT VOLUME 7.5 fl (7.5-11.1); MONO % 6.7 % (3.8-10.2); NEUT % 62.2 % (42.8-82.8); PLATELET COUNT 246 10^3/uL (134-434); RBC 4.35 M/mm3 (4.00-5.60); RDW 14.3 % (11.9-15.9); WHITE BLOOD COUNT 4.8 K/mm3 (4.0-10.0)
[2023-08-08 08:50] LABS: CHLORIDE 102 mmol/L (98-107); POTASSIUM 3.7 mmol/L (3.5-5.1); SODIUM 136 mmol/L (136-145)
[2023-08-08 08:58] LABS: ALBUMIN 3.6 g/dl (3.4-5.0); ANION GAP 7 mmol/L (4-13); BLOOD UREA NITROGEN 7.1 mg/dL (7-18); CO2 28 mmol/L (21-32); GLUCOSE,RANDOM 151 mg/dL (74-106)
[2023-08-08 09:01] LABS: CREATININE 0.7 mg/dL (0.55-1.3); PHOSPHOROUS 3.4 mg/dL (2.5-4.9); SGOT/AST 9 U/L (15-37)
[2023-08-08 09:02] LABS: TOT PROT 6.6 g/dl (6.4-8.2)
[2023-08-08 09:03] LABS: SGPT/ALT 14 U/L (13-61)
[2023-08-08 09:04] LABS: ALK PHOS 96 U/L (45-117)
[2023-08-08] MEDS: amLODIPine BESYLATE 5 MG TABLET (FP) PO SCH (09:30)
[2023-08-08] MEDS: FUROSEMIDE 20 MG TABLET (FP) PO SCH (09:30)
[2023-08-08] MEDS: FOLIC ACID 1 MG TABLET (FP) PO SCH (09:30)
[2023-08-08] MEDS: ASPIRIN COATED 81 MG TABLET.EC PO SCH (09:30)
[2023-08-08] MEDS: DIVALPROEX NA *ER* EXTEND REL 500 MG TABLET.SA (FP) PO SCH ×2 (09:31→22:20)
[2023-08-08] MEDS: LOSARTAN POTASSIUM 50 MG TABLET PO SCH (09:31)
[2023-08-08] MEDS: busPIRone HCL 10 MG TABLET (FP) PO SCH ×2 (09:31→22:20)
[2023-08-08] MEDS: ENOXAPARIN NA (PORCINE) 40 MG/0.4 ML DISP.SYRIN SQ SCH (09:31)
[2023-08-08] MEDS: DOXYCYCLINE INJECTION 100 MG in DEXTROSE 5%-WATER 100 ML IVPB SCH (11:10)
[2023-08-08] MEDS: ACETAMINOPHEN 1000 MG/100 ML BAG IVPB PRN (16:06)
[2023-08-08] MEDS ORDERED: FUROSEMIDE 40 MG/4 ML INJECTABLE VIAL IVPUSH ONE (18:57)
[2023-08-08] MEDS: ATORVASTATIN CA 40 MG TABLET (FP) PO SCH (22:21)
[2023-08-08] MEDS: THIAMINE HCL 100 MG TABLET (FP) PO SCH (22:21)
[2023-08-09] MEDS: AMPICILLIN NA/SULBACTAM NA 3 GM in SODIUM CHLORIDE 100 ML IVPB SCH ×2 (02:05→09:23)
[2023-08-09] MEDS: MAG HYDROX/ALH/SMC/DPHA/LIDO 240 ML MOUTHWASH MM SCH ×3 (05:49→17:56)
[2023-08-09] MEDS: PRAMIPEXOLE DIHYDROCHLORIDE 0.25 MG TABLET PO SCH ×3 (05:50→21:19)
[2023-08-09] MEDS: hydrALAZINE HCL 50 MG TABLET (FP) PO SCH ×3 (05:50→21:18)
[2023-08-09] MEDS: amLODIPine BESYLATE 5 MG TABLET (FP) PO SCH (09:24)
[2023-08-09] MEDS: LOSARTAN POTASSIUM 50 MG TABLET PO SCH (09:24)
[2023-08-09] MEDS: ASPIRIN COATED 81 MG TABLET.EC PO SCH (09:24)
[2023-08-09] MEDS: busPIRone HCL 10 MG TABLET (FP) PO SCH ×2 (09:24→21:18)
[2023-08-09] MEDS: ENOXAPARIN NA (PORCINE) 40 MG/0.4 ML DISP.SYRIN SQ SCH (09:25)
[2023-08-09] MEDS: FUROSEMIDE 20 MG TABLET (FP) PO SCH (09:25)
[2023-08-09] MEDS: DIVALPROEX NA *ER* EXTEND REL 500 MG TABLET.SA (FP) PO SCH ×2 (09:25→21:19)
[2023-08-09] MEDS: FOLIC ACID 1 MG TABLET (FP) PO SCH (09:25)
[2023-08-09 10:03] LABS: BASO % 1.4 % (0-2.0); EOS % 1.1 % (0-4.5); HEMOGLOBIN 14.2 GM/dL (11.7-16.9); LYMPH % 28.7 % (8-40); MCHC 34.6 g/dl (32.0-35.9); MEAN CELL VOLUME 95.4 fl (80-96); MEAN PLT VOLUME 7.8 fl (7.5-11.1); MONO % 7.5 % (3.8-10.2); NEUT % 61.3 % (42.8-82.8); PLATELET COUNT 239 10^3/uL (134-434); RDW 14.7 % (11.9-15.9); WHITE BLOOD COUNT 4.2 K/mm3 (4.0-10.0)
[2023-08-09 11:39] LABS: ALBUMIN 3.6 g/dl (3.4-5.0); CALCIUM 8.7 mg/dL (8.5-10.1); MAGNESIUM 2.2 mg/dL (1.8-2.4)
[2023-08-09 11:40] LABS: BLOOD UREA NITROGEN 9.6 mg/dL (7-18)
[2023-08-09 11:43] LABS: CREATININE 0.7 mg/dL (0.55-1.3); PHOSPHOROUS 3.2 mg/dL (2.5-4.9)
[2023-08-09 11:44] LABS: BILIRUBIN,TOTAL 0.6 mg/dL (0.2-1); TOT PROT 6.5 g/dl (6.4-8.2)
[2023-08-09] MEDS: traMADol HCL 50 MG TABLET PO PRN (14:02)
[2023-08-09 14:15] VITALS: BMI 20.6
[2023-08-09] MEDS: AMOXICILLIN 500 MG CAPSULE (FP) PO SCH ×2 (16:13→21:19)
[2023-08-09] MEDS: THIAMINE HCL 100 MG TABLET (FP) PO SCH (21:18)
[2023-08-09] MEDS: ALPRAZolam 0.25 MG TABLET PO SCH (21:18)
[2023-08-09] MEDS: ATORVASTATIN CA 40 MG TABLET (FP) PO SCH (21:18)
[2023-08-10] MEDS: MAG HYDROX/ALH/SMC/DPHA/LIDO 240 ML MOUTHWASH MM SCH ×4 (01:09→18:27)
[2023-08-10] MEDS: hydrALAZINE HCL 50 MG TABLET (FP) PO SCH ×3 (05:52→21:31)
[2023-08-10] MEDS: PRAMIPEXOLE DIHYDROCHLORIDE 0.25 MG TABLET PO SCH ×3 (05:52→21:31)
[2023-08-10] MEDS: AMOXICILLIN 500 MG CAPSULE (FP) PO SCH ×3 (05:52→22:18)
[2023-08-10] MEDS: SERTRALINE HCL 50 MG TABLET (FP) PO SCH (06:10)
[2023-08-10] MEDS: IBUPROFEN 600 MG TABLET (FP) PO PRN (06:19)
[2023-08-10 07:33] LABS: BASO % 1.4 % (0-2.0); EOS % 1.9 % (0-4.5); HEMATOCRIT 39.5 % (35.4-49); LYMPH % 39.5 % (8-40); MCH 31.8 pg (25.7-33.7); MCHC 32.9 g/dl (32.0-35.9); MEAN CELL VOLUME 96.5 fl (80-96); MEAN PLT VOLUME 7.7 fl (7.5-11.1); MONO % 9.7 % (3.8-10.2); NEUT % 47.5 % (42.8-82.8); PLATELET COUNT 231 10^3/uL (134-434); RBC 4.09 M/mm3 (4.00-5.60); RDW 14.6 % (11.9-15.9); WHITE BLOOD COUNT 4.6 K/mm3 (4.0-10.0)
[2023-08-10 07:45] LABS: POTASSIUM 3.5 mmol/L (3.5-5.1)
[2023-08-10 07:52] LABS: ALBUMIN 3.4 g/dl (3.4-5.0); BLOOD UREA NITROGEN 9.8 mg/dL (7-18); CALCIUM 8.7 mg/dL (8.5-10.1)
[2023-08-10 07:56] LABS: CREATININE 0.6 mg/dL (0.55-1.3); PHOSPHOROUS 3.4 mg/dL (2.5-4.9)
[2023-08-10 07:57] LABS: BILIRUBIN,TOTAL 0.9 mg/dL (0.2-1); TOT PROT 5.9 g/dl (6.4-8.2)
[2023-08-10] MEDS: traMADol HCL 50 MG TABLET PO PRN ×2 (10:02→21:34)
[2023-08-10] MEDS: ENOXAPARIN NA (PORCINE) 40 MG/0.4 ML DISP.SYRIN SQ SCH (10:02)
[2023-08-10] MEDS: LOSARTAN POTASSIUM 50 MG TABLET PO SCH (10:03)
[2023-08-10] MEDS: DIVALPROEX NA *ER* EXTEND REL 500 MG TABLET.SA (FP) PO SCH ×2 (10:03→22:18)
[2023-08-10] MEDS: FUROSEMIDE 20 MG TABLET (FP) PO SCH (10:03)
[2023-08-10] MEDS: FOLIC ACID 1 MG TABLET (FP) PO SCH (10:03)
[2023-08-10] MEDS: ASPIRIN COATED 81 MG TABLET.EC PO SCH (10:03)
[2023-08-10] MEDS: busPIRone HCL 10 MG TABLET (FP) PO SCH ×2 (10:04→21:35)
[2023-08-10] MEDS: amLODIPine BESYLATE 5 MG TABLET (FP) PO SCH (10:04)
[2023-08-10] MEDS: ALPRAZolam 0.25 MG TABLET PO SCH ×2 (10:04→21:34)
[2023-08-10] MEDS ORDERED: LABETALOL HCL 20 MG/4 ML VIAL IVPUSH PRN (19:16)
[2023-08-10] MEDS: ATORVASTATIN CA 40 MG TABLET (FP) PO SCH (21:34)
[2023-08-10] MEDS: THIAMINE HCL 100 MG TABLET (FP) PO SCH (21:36)
[2023-08-11] MEDS: MAG HYDROX/ALH/SMC/DPHA/LIDO 240 ML MOUTHWASH MM SCH ×4 (00:21→17:32)
[2023-08-11] MEDS: ACETAMINOPHEN 325 MG TABLET (FP) PO PRN ×2 (06:19→14:21)
[2023-08-11] MEDS: SERTRALINE HCL 50 MG TABLET (FP) PO SCH (06:19)
[2023-08-11] MEDS: AMOXICILLIN 500 MG CAPSULE (FP) PO SCH ×3 (06:20→22:12)
[2023-08-11] MEDS: PRAMIPEXOLE DIHYDROCHLORIDE 0.25 MG TABLET PO SCH ×3 (06:21→22:13)
[2023-08-11] MEDS: hydrALAZINE HCL 50 MG TABLET (FP) PO SCH ×3 (06:23→22:11)
[2023-08-11] MEDS: ENOXAPARIN NA (PORCINE) 40 MG/0.4 ML DISP.SYRIN SQ SCH (10:20)
[2023-08-11] MEDS: amLODIPine BESYLATE 5 MG TABLET (FP) PO SCH (10:21)
[2023-08-11] MEDS: LOSARTAN POTASSIUM 50 MG TABLET PO SCH (10:21)
[2023-08-11] MEDS: FOLIC ACID 1 MG TABLET (FP) PO SCH (10:21)
[2023-08-11] MEDS: FUROSEMIDE 20 MG TABLET (FP) PO SCH (10:21)
[2023-08-11] MEDS: ALPRAZolam 0.25 MG TABLET PO SCH ×2 (10:21→22:14)
[2023-08-11] MEDS: DIVALPROEX NA *ER* EXTEND REL 500 MG TABLET.SA (FP) PO SCH ×2 (10:25→22:12)
[2023-08-11] MEDS: busPIRone HCL 10 MG TABLET (FP) PO SCH ×2 (10:26→22:11)
[2023-08-11] MEDS: ASPIRIN COATED 81 MG TABLET.EC PO SCH (10:26)
[2023-08-11] MEDS: traMADol HCL 50 MG TABLET PO PRN ×2 (10:31→22:13)
[2023-08-11] MEDS: PANTOPRAZOLE 40 MG TABLET PO SCH (14:15)
[2023-08-11] MEDS: ATORVASTATIN CA 40 MG TABLET (FP) PO SCH (22:13)
[2023-08-11] MEDS: THIAMINE HCL 100 MG TABLET (FP) PO SCH (22:14)
[2023-08-12] MEDS: MAG HYDROX/ALH/SMC/DPHA/LIDO 240 ML MOUTHWASH MM SCH ×4 (00:17→17:12)
[2023-08-12] MEDS: AMOXICILLIN 500 MG CAPSULE (FP) PO SCH ×3 (06:00→21:00)
[2023-08-12] MEDS: hydrALAZINE HCL 50 MG TABLET (FP) PO SCH ×3 (06:00→21:01)
[2023-08-12] MEDS: PRAMIPEXOLE DIHYDROCHLORIDE 0.25 MG TABLET PO SCH ×3 (06:01→21:01)
[2023-08-12] MEDS: SERTRALINE HCL 50 MG TABLET (FP) PO SCH (06:02)
[2023-08-12] MEDS: ENOXAPARIN NA (PORCINE) 40 MG/0.4 ML DISP.SYRIN SQ SCH (09:27)
[2023-08-12] MEDS: ASPIRIN COATED 81 MG TABLET.EC PO SCH (09:27)
[2023-08-12] MEDS: LOSARTAN POTASSIUM 50 MG TABLET PO SCH (09:28)
[2023-08-12] MEDS: PANTOPRAZOLE 40 MG TABLET PO SCH (09:28)
[2023-08-12] MEDS: amLODIPine BESYLATE 5 MG TABLET (FP) PO SCH (09:28)
[2023-08-12] MEDS: busPIRone HCL 10 MG TABLET (FP) PO SCH ×2 (09:28→21:00)
[2023-08-12] MEDS: FOLIC ACID 1 MG TABLET (FP) PO SCH (09:28)
[2023-08-12] MEDS: traMADol HCL 50 MG TABLET PO PRN ×2 (09:28→20:59)
[2023-08-12] MEDS: FUROSEMIDE 20 MG TABLET (FP) PO SCH (09:30)
[2023-08-12] MEDS: DIVALPROEX NA *ER* EXTEND REL 500 MG TABLET.SA (FP) PO SCH ×2 (09:30→21:00)
[2023-08-12] MEDS: ALPRAZolam 0.25 MG TABLET PO SCH ×2 (09:30→21:01)
[2023-08-12 15:28] VITALS: RESP 16
[2023-08-12] MEDS: diphenhydrAMINE HCL 25 MG CAPSULE (FP) PO PRN (16:36)
[2023-08-12] MEDS: THIAMINE HCL 100 MG TABLET (FP) PO SCH (21:00)
[2023-08-12] MEDS: ATORVASTATIN CA 40 MG TABLET (FP) PO SCH (21:01)
[2023-08-13] MEDS: MAG HYDROX/ALH/SMC/DPHA/LIDO 240 ML MOUTHWASH MM SCH ×3 (00:43→12:33)
[2023-08-13] MEDS: traMADol HCL 50 MG TABLET PO PRN (05:43)
[2023-08-13] MEDS: diphenhydrAMINE HCL 25 MG CAPSULE (FP) PO PRN (05:44)
[2023-08-13] MEDS: AMOXICILLIN 500 MG CAPSULE (FP) PO SCH (05:45)
[2023-08-13] MEDS: hydrALAZINE HCL 50 MG TABLET (FP) PO SCH (05:45)
[2023-08-13] MEDS: PRAMIPEXOLE DIHYDROCHLORIDE 0.25 MG TABLET PO SCH (05:46)
[2023-08-13] MEDS: SERTRALINE HCL 50 MG TABLET (FP) PO SCH (06:37)
[2023-08-13 06:51] VITALS: BP 138/92; PULSE 66; TEMP 98.1
[2023-08-13] MEDS: ASPIRIN COATED 81 MG TABLET.EC PO SCH (10:26)
[2023-08-13] MEDS: amLODIPine BESYLATE 5 MG TABLET (FP) PO SCH (10:26)
[2023-08-13] MEDS: ALPRAZolam 0.25 MG TABLET PO SCH (10:26)
[2023-08-13] MEDS: FUROSEMIDE 20 MG TABLET (FP) PO SCH (10:27)
[2023-08-13] MEDS: DIVALPROEX NA *ER* EXTEND REL 500 MG TABLET.SA (FP) PO SCH (10:27)
[2023-08-13] MEDS: PANTOPRAZOLE 40 MG TABLET PO SCH (10:27)
[2023-08-13] MEDS: LOSARTAN POTASSIUM 50 MG TABLET PO SCH (10:28)
[2023-08-13] MEDS: busPIRone HCL 10 MG TABLET (FP) PO SCH (10:28)
[2023-08-13] MEDS: FOLIC ACID 1 MG TABLET (FP) PO SCH (10:29)
[2023-08-13] MEDS: ENOXAPARIN NA (PORCINE) 40 MG/0.4 ML DISP.SYRIN SQ SCH (10:29)
[2023-08-13] MEDS: IBUPROFEN 600 MG TABLET (FP) PO PRN (10:53)
== END 2023-08-13 13:45 | disposition other institution (70) | DRG 42 ==
LOC: JER 08:06 → JERBED 13:33 → J4S 22:49 → OBSVTOIN 08-07 16:04 → J5S 08-10 19:16
PROVIDERS: ADMIT Internal Medicine; ATTEND Internal Medicine
DX: G20.A1 Parkinson's disease without dyskinesia, without mention of fluctuations (principal); I69.354 Hemiplegia and hemiparesis following cerebral infarction affecting left non-dominant side; F10.20 Alcohol dependence, uncomplicated; G40.909 Epilepsy, unspecified, not intractable, without status epilepticus; I16.0 Hypertensive urgency; K04.7 Periapical abscess without sinus; G43.909 Migraine, unspecified, not intractable, without status migrainosus; G25.81 Restless legs syndrome
CPT/HCPCS: 36415; 70450-TC; 70496-TC; 70498-TC; 70551-TC; 71045-TC-FY; 72131-TC; 80053; 80061; 81003; 82550; 82962; 83036; 83735; 84100; 84443; 84484; 85025; 85610; 85651; 85730; 86140; 86850; 86900; 86901; 87040; 87086; 93005; 93010; 93306-TC; 97116-GP; 97162-GP; 99285-25; G0378; Q9967

== ENCOUNTER 2023-08-13 21:54 | Observation (INO) | payer OTHER ==
[2023-08-13 23:24] LABS: BASO % 1.5 % (0-2.0); EOS % 2.1 % (0-4.5); HEMOGLOBIN 14.8 GM/dL (11.7-16.9); LYMPH % 35.3 % (8-40); MCH 32.3 pg (25.7-33.7); MCHC 33.7 g/dl (32.0-35.9); MEAN CELL VOLUME 95.6 fl (80-96); MEAN PLT VOLUME 7.5 fl (7.5-11.1); MONO % 5.6 % (3.8-10.2); NEUT % 55.5 % (42.8-82.8); PLATELET COUNT 233 10^3/uL (134-434); RDW 14.6 % (11.9-15.9); WHITE BLOOD COUNT 5.3 K/mm3 (4.0-10.0)
[2023-08-13 23:32] LABS: INR 1.17 (0.83-1.09); PROTHROMBIN TIME (PATIENT) 13.5 SEC (9.7-13.0)
[2023-08-13 23:35] LABS: ACTIVATED PTT 33.8 SECONDS (25.2-36.5)
[2023-08-13] MEDS: SODIUM CHLORIDE 1,000 ML IV SCH (23:45)
[2023-08-13 23:47] LABS: POTASSIUM 4.4 mmol/L (3.5-5.1)
[2023-08-13 23:51] LABS: BLOOD UREA NITROGEN 11.2 mg/dL (7-18)
[2023-08-13 23:53] LABS: CREATININE 0.8 mg/dL (0.55-1.3)
[2023-08-13 23:54] LABS: TOT PROT 7.1 g/dl (6.4-8.2)
[2023-08-13 23:55] LABS: BILIRUBIN,TOTAL 0.4 mg/dL (0.2-1)
[2023-08-14] MEDS ORDERED: ASPIRIN 81 MG CHEWABLE TABLETS PO ONE (00:25)
[2023-08-14] MEDS ORDERED: ATORVASTATIN CA 40 MG TABLET (FP) PO ONE (00:25)
[2023-08-14] MEDS ORDERED: ACETAMINOPHEN 1000 MG/100 ML BAG IVPB ONE (00:26)
[2023-08-14] MEDS ORDERED: ATORVASTATIN CA 40 MG TABLET (FP) ONE (00:30)
[2023-08-14] MEDS ORDERED: ACETAMINOPHEN INJECTION 100 ML IVPB ONE (00:30)
[2023-08-14] MEDS ORDERED: ASPIRIN 81 MG CHEWABLE TABLETS ONE (00:30)
[2023-08-14] MEDS ORDERED: levETIRAcetam 500 MG/5 ML INJECTION VIAL IVPB ONE ×2 (04:10→04:20)
[2023-08-14] MEDS ORDERED: ALPRAZolam 1 MG TABLET ONE (04:41)
[2023-08-14] MEDS: ALPRAZolam 0.25 MG TABLET PO SCH ×2 (04:45→22:02)
[2023-08-14] MEDS ORDERED: hydrALAZINE HCL 25 MG TABLET (FP) ONE (06:05)
[2023-08-14] MEDS: PRAMIPEXOLE DIHYDROCHLORIDE 0.25 MG TABLET PO SCH ×3 (06:16→22:02)
[2023-08-14] MEDS: hydrALAZINE HCL 25 MG TABLET (FP) PO SCH ×3 (06:16→22:01)
[2023-08-14 08:21] LABS: HEMATOCRIT 39.5 % (35.4-49); HEMOGLOBIN 13.1 GM/dL (11.7-16.9); MCH 32.2 pg (25.7-33.7); MCHC 33.3 g/dl (32.0-35.9); MEAN CELL VOLUME 96.9 fl (80-96); MEAN PLT VOLUME 7.7 fl (7.5-11.1); PLATELET COUNT 206 10^3/uL (134-434); RBC 4.07 M/mm3 (4.00-5.60); RDW 14.3 % (11.9-15.9); WHITE BLOOD COUNT 5.6 K/mm3 (4.0-10.0)
[2023-08-14 08:42] LABS: POTASSIUM 3.7 mmol/L (3.5-5.1)
[2023-08-14] MEDS: PANTOPRAZOLE 20 MG TABLET PO SCH (08:44)
[2023-08-14] MEDS: SERTRALINE HCL 50 MG TABLET (FP) PO SCH (08:44)
[2023-08-14] MEDS: FOLIC ACID 1 MG TABLET (FP) PO SCH (08:44)
[2023-08-14] MEDS: SUCRALFATE 1 GM TABLET (FP) PO SCH ×4 (08:44→22:01)
[2023-08-14 08:47] LABS: CALCIUM 9.1 mg/dL (8.5-10.1)
[2023-08-14 08:48] LABS: ALBUMIN 3.6 g/dl (3.4-5.0); BLOOD UREA NITROGEN 11.1 mg/dL (7-18)
[2023-08-14 08:51] LABS: CREATININE 0.7 mg/dL (0.55-1.3); PHOSPHOROUS 3.7 mg/dL (2.5-4.9)
[2023-08-14 08:52] LABS: TOT PROT 6.1 g/dl (6.4-8.2)
[2023-08-14 08:53] LABS: BILIRUBIN,TOTAL 0.6 mg/dL (0.2-1)
[2023-08-14 09:17] LABS: URINE APPEARANCE Clear; URINE BILIRUBIN Negative (NEGATIVE); URINE COLOR Yellow; URINE GLUCOSE (UA) Negative (NEGATIVE); URINE KETONE Negative (NEGATIVE); URINE LEUK ESTERASE Negative (NEGATIVE); URINE NITRITE Negative (NEGATIVE); URINE PROTEIN Negative (NEGATIVE); URINE UROBILINOGEN 0.2 mg/dL (0.2-1.0)
[2023-08-14] MEDS: ENOXAPARIN NA (PORCINE) 40 MG/0.4 ML DISP.SYRIN SQ SCH (11:00)
[2023-08-14] MEDS: ASPIRIN COATED 81 MG TABLET.EC PO SCH (11:00)
[2023-08-14] MEDS: amLODIPine BESYLATE 10 MG TABLET (FP) PO SCH (11:00)
[2023-08-14] MEDS: levETIRAcetam 500 MG/5 ML INJECTION VIAL IVPB SCH ×2 (11:00→22:02)
[2023-08-14] MEDS: DIVALPROEX NA *ER* EXTEND REL 500 MG TABLET.SA (FP) PO SCH ×2 (11:00→22:01)
[2023-08-14] MEDS: THIAMINE HCL 100 MG TABLET (FP) PO SCH (11:00)
[2023-08-14] MEDS: busPIRone HCL 10 MG TABLET (FP) PO SCH ×2 (11:00→22:01)
[2023-08-14] MEDS: GABAPENTIN 300 MG CAPSULE PO SCH ×2 (11:00→22:02)
[2023-08-14] MEDS ORDERED: busPIRone HCL 5 MG TABLET ONE (11:39)
[2023-08-14] MEDS ORDERED: DIVALPROEX NA *ER* EXTEND REL 250 MG TABLET.SA ONE (11:43)
[2023-08-14] MEDS: LOSARTAN POTASSIUM 50 MG TABLET PO SCH (14:01)
[2023-08-14] MEDS ORDERED: ACETAMINOPHEN 1000 MG/100 ML BAG IVPB PRN (20:13)
[2023-08-14] MEDS ORDERED: LOPERAMIDE HCL 1 MG/5 ML UNIT DOSE CUP PO ONE (20:14)
[2023-08-14] MEDS ORDERED: ALPRAZolam 0.25 MG TABLET ONE (21:48)
[2023-08-14] MEDS ORDERED: DIVALPROEX SODIUM 250 MG TABLET E.C. ONE (21:49)
[2023-08-14] MEDS: traZODone HCL 100 MG TABLET (FP) PO SCH (22:02)
[2023-08-14] MEDS: ATORVASTATIN CA 40 MG TABLET (FP) PO SCH (22:02)
[2023-08-14] MEDS: SODIUM CHLORIDE 1,000 ML IV SCH (22:02)
[2023-08-15] MEDS ORDERED: SODIUM CHLORIDE 500 ML IV STA (03:03)
[2023-08-15] MEDS: hydrALAZINE HCL 25 MG TABLET (FP) PO SCH (05:53)
[2023-08-15] MEDS ORDERED: SUCRALFATE 1 GM TABLET (FP) ONE (06:01)
[2023-08-15] MEDS ORDERED: SERTRALINE HCL 50 MG TABLET (FP) ONE (06:01)
[2023-08-15] MEDS ORDERED: PANTOPRAZOLE 20 MG TABLET PO ONE (06:01)
[2023-08-15] MEDS ORDERED: FOLIC ACID 1 MG TABLET (FP) ONE (06:01)
[2023-08-15] MEDS: FOLIC ACID 1 MG TABLET (FP) PO SCH (06:06)
[2023-08-15] MEDS: SERTRALINE HCL 50 MG TABLET (FP) PO SCH (06:06)
[2023-08-15] MEDS: PANTOPRAZOLE 20 MG TABLET PO SCH (06:06)
[2023-08-15] MEDS: SUCRALFATE 1 GM TABLET (FP) PO SCH ×4 (06:06→21:39)
[2023-08-15] MEDS: PRAMIPEXOLE DIHYDROCHLORIDE 0.25 MG TABLET PO SCH ×3 (06:06→21:39)
[2023-08-15] MEDS: ENOXAPARIN NA (PORCINE) 40 MG/0.4 ML DISP.SYRIN SQ SCH (10:30)
[2023-08-15] MEDS: DIVALPROEX NA *ER* EXTEND REL 500 MG TABLET.SA (FP) PO SCH ×2 (10:30→21:39)
[2023-08-15] MEDS: amLODIPine BESYLATE 10 MG TABLET (FP) PO SCH (10:30)
[2023-08-15] MEDS: ALPRAZolam 0.25 MG TABLET PO SCH (10:30)
[2023-08-15] MEDS: ASPIRIN COATED 81 MG TABLET.EC PO SCH (10:30)
[2023-08-15] MEDS: levETIRAcetam 500 MG/5 ML INJECTION VIAL IVPB SCH (10:30)
[2023-08-15] MEDS: GABAPENTIN 300 MG CAPSULE PO SCH ×2 (10:30→21:39)
[2023-08-15] MEDS ORDERED: ALPRAZolam 0.25 MG TABLET ONE ×2 (10:30→18:37)
[2023-08-15] MEDS: THIAMINE HCL 100 MG TABLET (FP) PO SCH (10:30)
[2023-08-15] MEDS: busPIRone HCL 10 MG TABLET (FP) PO SCH ×2 (10:30→21:39)
[2023-08-15] MEDS: LOSARTAN POTASSIUM 50 MG TABLET PO SCH (11:03)
[2023-08-15] MEDS: ALPRAZolam 0.25 MG TABLET PO PRN (18:36)
[2023-08-15] MEDS ORDERED: levETIRAcetam 500 MG TABLET (FP) PO ONE (21:32)
[2023-08-15] MEDS: levETIRAcetam 500 MG TABLET (FP) PO SCH (21:39)
[2023-08-15] MEDS: ATORVASTATIN CA 40 MG TABLET (FP) PO SCH (21:39)
[2023-08-15] MEDS: traZODone HCL 100 MG TABLET (FP) PO SCH (21:39)
[2023-08-15 22:26] VITALS: RESP 20
[2023-08-16 00:54] VITALS: BMI 21.1
[2023-08-16] MEDS: PRAMIPEXOLE DIHYDROCHLORIDE 0.25 MG TABLET PO SCH ×2 (06:12→15:13)
[2023-08-16] MEDS: SODIUM CHLORIDE 1,000 ML IV SCH (06:12)
[2023-08-16] MEDS: SUCRALFATE 1 GM TABLET (FP) PO SCH ×2 (06:12→12:23)
[2023-08-16] MEDS: SERTRALINE HCL 50 MG TABLET (FP) PO SCH (06:12)
[2023-08-16] MEDS: FOLIC ACID 1 MG TABLET (FP) PO SCH (06:13)
[2023-08-16] MEDS: PANTOPRAZOLE 20 MG TABLET PO SCH (06:13)
[2023-08-16 07:56] VITALS: BP 128/79; PULSE 69; TEMP 98
[2023-08-16] MEDS: amLODIPine BESYLATE 10 MG TABLET (FP) PO SCH (09:31)
[2023-08-16] MEDS: busPIRone HCL 10 MG TABLET (FP) PO SCH (09:31)
[2023-08-16] MEDS: ASPIRIN COATED 81 MG TABLET.EC PO SCH (09:31)
[2023-08-16] MEDS: levETIRAcetam 500 MG TABLET (FP) PO SCH (09:31)
[2023-08-16] MEDS: THIAMINE HCL 100 MG TABLET (FP) PO SCH (09:31)
[2023-08-16] MEDS: GABAPENTIN 300 MG CAPSULE PO SCH (09:31)
[2023-08-16] MEDS: ENOXAPARIN NA (PORCINE) 40 MG/0.4 ML DISP.SYRIN SQ SCH (09:32)
[2023-08-16] MEDS: ALPRAZolam 0.25 MG TABLET PO PRN (09:41)
[2023-08-16] MEDS ORDERED: LOSARTAN POTASSIUM 50 MG TABLET PO SCH (10:00)
[2023-08-16] MEDS: DIVALPROEX NA *ER* EXTEND REL 500 MG TABLET.SA (FP) PO SCH (10:54)
[2023-08-17] MEDS ORDERED: SERTRALINE HCL 50 MG TABLET (FP) PO SCH (10:00)
== END 2023-08-16 17:13 | disposition other institution (70) ==
LOC: JER 21:54 → JERBED 08-14 02:17 → J4W 08-16 03:49
PROVIDERS: ADMIT Internal Medicine; ATTEND Psychiatry & Neurology Pain Medicine
PROC: 3E033NZ Introduction of Analgesics, Hypnotics, Sedatives into Peripheral Vein, Percutaneous Approach (ICD-10-PCS; principal; 2023-08-14)
PROC: 3E023GC Introduction of Other Therapeutic Substance into Muscle, Percutaneous Approach (ICD-10-PCS; 2023-08-14)
PROC: 3E033GC Introduction of Other Therapeutic Substance into Peripheral Vein, Percutaneous Approach (ICD-10-PCS; 2023-08-14)
PROC: 3E0337Z Introduction of Electrolytic and Water Balance Substance into Peripheral Vein, Percutaneous Approach (ICD-10-PCS; 2023-08-14)
DX: R07.9 Chest pain, unspecified (principal); F10.99 Alcohol use, unspecified with unspecified alcohol-induced disorder; F12.90 Cannabis use, unspecified, uncomplicated; F32.A Depression, unspecified; F41.9 Anxiety disorder, unspecified; I69.854 Hemiplegia and hemiparesis following other cerebrovascular disease affecting left non-dominant side; I10 Essential (primary) hypertension; Z87.891 Personal history of nicotine dependence; Z87.828 Personal history of other (healed) physical injury and trauma
CPT/HCPCS: 0241U-QW; 36415; 70450-TC; 70496-TC; 70498-TC; 70551-TC; 71045-TC-FY; 72125-TC; 80053; 80061; 80307; 81003; 82550; 82962; 83036; 83735; 84100; 84484; 85025; 85027; 85610; 85730; 86850; 86900; 86901; 93005; 93010; 95816; 96361; 96372; 96374; 96375; 96376; 97116-GP; 97162-GP; 99285-25; G0378; Q9967